=== PATIENT | male | born 1965 | race Caucasian/White ===

== ENCOUNTER → 2020-04-23 | Outpatient (CLI) | payer OTHER ==
[~2020-04-23] MED LIST: ARAVA20 MG PO; ATORVASTATIN CA40 MG PO; AUGMENTIN 875875 M1 PO; CELEBREX 200 M200 MG PO; CYMBALTA30 MG PO; CYMBALTA60 MG PO; ELAVIL PO; ELEMENTAL CALC600 MG PO; FOLIC ACID1 MG PO; GABAPENTIN 100100 MG PO; HUMIRA10 MG/0.2 SQ; HUMIRA40 MG/0.1 SQ; HYDROCODON-ACE1 EAC7 PO; HYDROXYCHLOROQ200 M1 PO; HYSINGLA ER30 MG PO; INTERMEZZO3.5 MG SL; LEFLUNOMIDE20 MG PO; LIPITOR40 MG PO; MELOXICAM15 MG PO; METHOTREXATE 22.5 M1 PO; METHOTREXATE 22.5 MG PO; MOBIC15 MG PO; MS CONTIN15 MG PO; NEURONTIN 300300 M1 PO; NEURONTIN 300M300 M2 PO; NEXIUM40 MG PO; NORCO 10-325 T1 EACH PO; OXYCONTIN15 MG PO; OXYCONTIN30 MG PO; PAXIL10 MG; PERCOCET 5-3251 EACH PO; PREDNISONE 10 M10 MG PO; PREDNISONE 5 MG5 M1 PO; PROTONIX40 M2 PO; REMERON 30 MG T30 M1 PO; REMERON 30 MG T30 MG PO; REMERON30 M1 PO; REMICADE; SIMPONI AR50 MG/4 ML IV; SUBOXONE 8 MG-1 EAC3 SL; TIZANIDINE HCL4 MG PO; VITAMIN D35000 UNI1 PO; VOLTAREN GEL 1100 G1 TOP; ZANAFLEX4 M1 PO
== END ==
LOC: SJCVCIMAG 14:07
PROVIDERS: ATTEND Internal Medicine
DX: R00.0 Tachycardia, unspecified (principal); I42.9 Cardiomyopathy, unspecified

== ENCOUNTER → 2020-05-02 | Outpatient (CLI) | payer OTHER | LOC: SJCVCIMAG 08:41 | PROVIDERS: ATTEND Internal Medicine | DX: E04.2 Nontoxic multinodular goiter (principal); E07.89 Other specified disorders of thyroid; M79.604 Pain in right leg; M79.605 Pain in left leg; M79.89 Other specified soft tissue disorders; I26.99 Other pulmonary embolism without acute cor pulmonale; E06.9 Thyroiditis, unspecified; Z79.899 Other long term (current) drug therapy; Z87.891 Personal history of nicotine dependence ==